=== PATIENT | female | born 1950 | race African-American/Black ===

== ENCOUNTER 2016-03-05 12:27 | Outpatient (CLI) | payer MEDICARE ==
--- NOTE | 2016-03-05 14:13 | Mammography Report ---
Right mammogram and right breast ultrasound: Additional compression lateral and CC images of the right breast are performed. There is a defined nodule in the upper breast with smooth margins better visualized in the cc projection. It measures proximally 2 cm. No calcifications. Ultrasound and 10:00 location the findings a well circumscribed anechoic mass measuring 17 mm. There is slight enhancement on distal echoes. This is consistent with a simple cyst. There is an elongated and relatively narrow collection of fluid also noted in the 9:00 location 4 cm from the nipple. This has benign characteristics. No other findings. Impression: The right breast mass does correspond to the simple cyst. Recommendation: Annual mammogram followup. BI-RADS CATEGORY: 2 = Benign ACR BI-RADS MAMMOGRAPHIC CODES: 0 = Needs additional imaging evaluation; 1 = Negative; 2 = Benign; 3 = Probably benign; 4 = Suspicious; 5 = Malignant; 6 = Known biopsy-proven malignancy COMMENT: 1. Dense breast tissue, i.e., adenosis, fibrocystic changes, etc., may obscure an underlying neoplasm. 2. Approximately 10% of cancers are not detected with mammography. 3. A negative mammography report should not delay biopsy if a clinically suspicious mass is present.
== END 2016-03-05 12:28 | disposition home or self-care (01) ==
LOC: MAMMO 12:27
PROVIDERS: ATTEND Hospitalist
DX: R92.2 Inconclusive mammogram (principal)
CPT/HCPCS: 76641; G0206

== ENCOUNTER 2017-02-11 09:49 | Outpatient (CLI) | payer MEDICARE ==
--- NOTE | 2017-02-12 12:15 | Mammography Report ---
BILATERAL DIGITAL SCREENING MAMMOGRAM with CAD: 02/11/17 09:49:00 CLINICAL: Routine screening. COMPARISON:02/11/16 FINDINGS: There are scattered areas of fibroglandular density.The previously confirmed right upper outer cyst is unchanged. No mass, architectural distortion or suspicious calcifications. IMPRESSION: No mammographic evidence of malignancy. BI-RADS CATEGORY: 2 -- Benign RECOMMENDATION: Routine mammographic screening in one year. COMMENT: Patient follow-up letters are generated by our [employer] application.
== END 2017-02-11 09:50 | disposition home or self-care (01) ==
LOC: MAMMO 09:49
PROVIDERS: ATTEND Hospitalist
DX: Z12.31 Encounter for screening mammogram for malignant neoplasm of breast (principal)
CPT/HCPCS: 77067; G0202